=== PATIENT | female | born 1940 | race Caucasian/White ===

== ENCOUNTER 2024-01-03 13:27 | Emergency (ER) | payer OTHER ==
[~2024-01-03] VITALS: Ht 152.4 cm; Wt 64.4 kg
[2024-01-03 13:35] VITALS: BP 151/49; PULSE 72; RESP 18; TEMP 98.4; O2SAT 97
[2024-01-03 14:15] VITALS: O2SAT 97
[2024-01-03] MEDS ORDERED: ACETAMINOPHEN 325 MG TAB ONE (14:26)
[2024-01-03] MEDS: ACETAMINOPHEN 325 MG TAB PO ONE (14:29)
[2024-01-03 15:07] LABS: APPEARANCE,URINE CLEAR (CLEAR); BILIRUBIN,URINE NEGATIVE (NEGATIVE); BLOOD, URINE 1+ (NEGATIVE); COLOR,URINE YELLOW (YELLOW); LEUKOCYTE ESTERASE ,URINE 3+ (NEGATIVE); NITRITE, URINE POSITIVE (NEGATIVE); PROTEIN,URINE NEGATIVE (NEGATIVE); UGLUCOSE NEGATIVE (NEGATIVE); UROBILINOGEN,URINE 0.2 EU/dL (0.2 - 1)
[2024-01-03 15:22] VITALS: BP 151/49; PULSE 72; RESP 18; TEMP 98.4; O2SAT 97
[2024-01-03] MEDS ORDERED: EFIN4SOL TP (15:22)
[2024-01-03] MEDS ORDERED: CEPH-588 PO (15:22)
[2024-01-03 15:32] LABS: BACTERIA,URINE 3+ /HPF (None Seen); MUCUS,URINE 2+ /LPF (None Seen); RBC,URINE 11-20 (MOD) /HPF (0-5); SQUAMOUS EPITHELIAL CELL,UR 4-10 (MOD) /LPF (0-3 (FEW)); WBC,URINE TOO MANY TO COUNT /HPF (0-5)
[2024-01-03 15:33] LABS: YEAST,URINE None Seen /HPF (None Seen)
[2024-01-05] MEDS ORDERED: NITR100C7 PO (15:17)
== END 2024-01-03 15:27 | disposition home or self-care (01) ==
LOC: MED 13:27
DX: S62.521A Displaced fracture of distal phalanx of right thumb, initial encounter for closed fracture (principal); S05.12XA Contusion of eyeball and orbital tissues, left eye, initial encounter; S09.90XA Unspecified injury of head, initial encounter; B35.1 Tinea unguium; N39.0 Urinary tract infection, site not specified; E11.9 Type 2 diabetes mellitus without complications; I10 Essential (primary) hypertension; Z79.2 Long term (current) use of antibiotics; Z79.899 Other long term (current) drug therapy; W06.XXXA Fall from bed, initial encounter; Y93.89 Activity, other specified; Y92.89 Other specified places as the place of occurrence of the external cause; Y99.8 Other external cause status
CPT/HCPCS: 70450; 70480; 73140; 81001; 87086; 87186; 99284; 99285